=== PATIENT | male | born 1980 | race Caucasian/White ===

== ENCOUNTER 2020-03-29 06:08 | Outpatient (REF) | payer OTHER, SELFPAY | END 2020-03-29 06:09 | disposition home or self-care (01) | LOC: HO.LAB 06:08 | PROVIDERS: Visit Provider Internal Medicine | DX: Z20.828 Contact with and (suspected) exposure to other viral communicable diseases (principal) | CPT/HCPCS: C9803; U0003 ==

== ENCOUNTER 2020-05-30 11:57 | Outpatient (REF) | payer OTHER, SELFPAY ==
--- NOTE | 2020-05-30 12:18 | XR_ITS ---
EXAMINATION: XR CHEST CLINICAL INFORMATION: Cough. COMPARISON: Most recent chest radiograph dated 07/06/2015. TECHNIQUE: 2 views of the chest were obtained. FINDINGS: The lungs are clear. The cardiomediastinal silhouette is normal in size. There is no pleural effusion or pneumothorax. No acute osseous abnormality. XR/XR chest 2V IMPRESSION: No acute cardiopulmonary findings.
[2020-05-30 12:54] LABS: MANUAL DIFF FLAG NO
[2020-05-30 13:04] LABS: Basophils Percent Auto 0.4 % (0-2); Eosinophils Absolute Auto 0.1 X10*3/uL (0.0-0.4); Eosinophils Percent Auto 1.4 % (0-4); Hematocrit 43.9 % (42-52); Hemoglobin 14.9 g/dl (14.0-18.0); Imm Gran Abs Auto 0.02 X10*3/uL (0.00-0.03); Imm Gran Pct Auto 0.4 % (0.0-0.4); Lymphocytes Absolute Auto 1.7 X10*3/uL (1.2-4.9); Lymphocytes Percent Auto 34.5 % (20-40); Mean Corpuscular HGB Conc 33.9 g/dl (31.0-36.0); Mean Corpuscular Hemoglobin 31.7 pg (27.0-33.0); Mean Corpuscular Volume 93.4 fL (80-98); Mean Platelet Volume 9.5 fL (9.4-12.4); Monocytes Absolute Auto 0.4 X10*3/uL (0.1-1.2); Monocytes Percent Auto 8.8 % (2-11); Neutrophils Absolute Auto 2.7 X10*3/uL (2.0-8.3); Neutrophils Percent Auto 54.5 % (45-73); Platelet Count 243 X10*3/uL (160-400); Red Cell Distribution Width 11.6 % (11.0-16.0); White Blood Count 4.9 X10*3/uL (4.8-10.8)
[2020-05-30 13:17] LABS: Glucose Urine UA NEG (NEG); Leukocyte Esterase Urine NEG (NEG); Nitrite Urine NEG (NEG); PH 6.5 (5.0-8.0); Urine Blood NEG (NEG); Urine Ketones NEG (NEG); Urine Protein NEG (NEG-TRACE)
[2020-05-30 13:21] LABS: Alanine Aminotransferase 16 U/L (0-40); Albumin Level 4.6 g/dL (3.5-5.0); Alkaline Phosphatase 62 U/L (39-117); Anion Gap 11 (12-20); Aspartate Amino Transferase 15 U/L (5-37); Bilirubin Total 0.4 mg/dL (0.0-1.0); Blood Urea Nitrogen 18 mg/dL (9-16); Calcium 9.6 mg/dL (8.4-10.2); Carbon Dioxide 30 mmol/L (22-29); Chloride 106 mmol/L (96-108); Estimated Glomerular Filt Rate > 60; Glucose Random 122 mg/dL (60-115); Potassium 4.9 mmol/l (3.3-5.1); Sodium 142 mmol/L (135-145)
[2020-05-30 13:22] LABS: Appearance Urine CLEAR; Color Urine YELLOW
== END 2020-05-30 11:58 | disposition home or self-care (01) ==
LOC: HO.LAB 11:57
PROVIDERS: PCP Internal Medicine; Visit Provider Internal Medicine
DX: R05 Cough (principal)
CPT/HCPCS: 36415; 71046; 80053; 81003; 85025

== ENCOUNTER 2020-08-30 09:31 | Outpatient (REF) | payer OTHER, SELFPAY ==
[2020-08-30 11:08] LABS: Estimated Average Glucose 97 mg/dL
[2020-08-30 11:25] LABS: Alanine Aminotransferase 17 U/L (0-40); Albumin Level 4.5 g/dL (3.5-5.0); Alkaline Phosphatase 67 U/L (39-117); Anion Gap 10 (12-20); Aspartate Amino Transferase 20 U/L (5-37); Bilirubin Total 0.8 mg/dL (0.0-1.0); Blood Urea Nitrogen 19 mg/dL (9-16); Calcium 9.6 mg/dL (8.4-10.2); Carbon Dioxide 27 mmol/L (22-29); Chloride 106 mmol/L (96-108); Cholesterol 204 mg/dL; Estimated Glomerular Filt Rate > 60; Glucose Random 100 mg/dL (60-115); HDL Cholesterol 47 mg/dL; LDL Cholesterol Calculated 132 mg/dl; Potassium 4.8 mmol/L (3.3-5.1); Sodium 138 mmol/L (135-145); Total Protein 6.9 g/dL (6.5-8.0); Triglycerides 126 mg/dL
[2020-08-31 07:53] LABS: SARS COV2 IgG Negative (Negative)
== END 2020-08-30 09:32 | disposition home or self-care (01) ==
LOC: HO.LAB 09:31
PROVIDERS: PCP Internal Medicine; Visit Provider Internal Medicine
DX: E78.00 Pure hypercholesterolemia, unspecified (principal); R73.09 Other abnormal glucose; R05 Cough
CPT/HCPCS: 36415; 80053; 80061; 83036; 86769

== ENCOUNTER 2025-01-25 13:49 | Outpatient (REF) | payer OTHER, SELFPAY ==
--- OUTSIDE RECORDS SUMMARY | 2020-12-19 19:43 | XMS_ITS | Encounter Summary ---
Author Organization [facility] Address [address] [place] [address] Phone Care Team Providers Care Executive Vice President Business Development Name Role Phone Unknown, Unknown Primary Care Provider Venessa hess Encounter Details Date Type Department Care Team (Late st Contact Info) Description 12/19/2020 7:43 PM EDT Hospital Encounter [facility] [address] [place] [phone] Priscilla Romero PA [address] [place] [phone] [email or web address] Social History Tobacco Use Types Packs/Day Years Used Date Smoking Tobacco: Former Smokeless Tobacco: Former Quit: 2010 Comments:Stopped 15 years ag o. Alcohol Use Standard Drinks/Week Comments Yes 0 (1 standard drink = 0.6 oz pur e alcohol) 1-2 a week. Education Answer Date Recorded Are you interested in more education? Not on karen e 09/26/2022 Are you concerned about learning? Not on file 09/26/2022 No 09/26/2022 No 09/26/2022 Digital Access Answer Date Recorded No 10/13/2022 No 10/13/2022 Reliable internet access at home? Not on file 10/13/2022 Device with a working camera? Not on file Sex and Gender Information Value Date Recorded Sex Assigned at Male 02/20/2021 9:31 AM EDT Legal Sex Male 6:55 PM EST Gender Identity Male 02/20/2021 9:31 AM EDT Sexual Orientation Straight 02/20/2021 9: 31 AM EDT documented as of this encounter Functional Status * Calculated C-SSRS Risk Score (Lifetime/Recent) Answer Date of Assessment Author No Risk Indicated 02/20/2021 9:31 AM EDT Ruth Kaye, RN * Nolan Suicide Severity Rating Scale (Screener/Recent Self-Report) Question Answer Date of Assessment Author 1. Wish to be (Past 1 Month) No 021 9:31 AM EDT Ruth Fox, RN 2. Non-Specific Active Suici adilson Thoughts (Past 1 Month) No 02/20/2021 9:31 AM EDT Ruth Fox, HASMUKH 6. Suicidal Behavior (Lifetime) No 9:31 AM EDT Ruth Fox, HASMUKH documented as of this encounter Plan of Treatment Not on file documented as of this encounter Procedures Procedure Name Priority Date/Time Associated Diagnosis Comments XR FOOT 3 OR MORE VIEWS (LEFT) Urgent/patient waiting 12/19/2020 7:52 PM EDT Foot sprain, left, initial encounter documented in this encounter Results * XR FOOT 3 OR MORE VIEWS (LEFT) (12/19/2020 7:52 PM EDT) Anatomical Region Laterality Modality Foot Left Computed Radiogr aphy 12/19/2020 7:58 PM EDT Impressions 12/19/2020 8:01 PM EDT No fracture or dislocation. ATTESTATION: I, Edilma Cuevas as teaching physician, have reviewed the images for this case and if necessary edited the report originally created by Radha Garcia. Narrative 12/19/2020 8:01 PM EDT XR FOOT 3 OR MORE VIEWS (LEFT) COMPARISON: None FINDINGS: No fracture. Normal alignment. Normal joint spaces. Calcaneal enthesophyte. No soft tissue swelling. Procedure Note Edilma Cuevas MD - 12/19/2020 XR FOOT 3 OR MORE VIEWS (LEFT) COMPARISON: None FINDINGS: No fracture. Normal alignment. Normal joint spaces. Calcanealenthesophyte. No soft tissue swelling. IMPRESSION: No fracture or dislocation. ATTESTATION: I, Edilma Cuevas as teaching physician, have reviewed theimages for this case and if necessary edited the report originally createdby Radha Garcia. Priscilla FRANKEL IMG XR LOWER EXTREMITY Final Result documented in this encounter Visit Diagnoses Not on filedocumented in this encounter Additional Health Concerns Infection Onset Date Last Indicated Resolved Time CoV-Risk 05/06/2023 05/06/2023 05/17/2023 1:23 AM EST documented as of this encounter Care Teams Executive Vice President Business Development Relationship Specialty Start Date End Date Unknown, Unknown, PCP - General 05/03/16 02/19/21 documented as of this encounter Additional Source Comments The information contained in this document represents components of the legal health record. It is not the complete legal health record.[facility]
--- OUTSIDE RECORDS SUMMARY | 2025-01-25 16:32 | XMS_ITS | Encounter Summary ---
Author Organization [facility] Address [address] [place] [address] Phone Care Team Providers Care Ordained Minister Name Role Phone Kenneth Gale Primary Care Provider [phone] ShahlaKenneth Unavailable Encounter Details Date Type Department Care Team (Latest Contact Info) Description 04/14/2024 Transcribe Orders Virtual Department [address] [place] [address] Aissatou Whaley PA [address] [place] [address] [place] [address] Left shoulder pain, unspecified chronicity (Primary Dx) Social History Tobacco Use Types Packs/Day Years [...] AM EDT documented as of this encounter Plan of Treatment Scheduled Orders Name Type Priority Associated Diagnoses Orde r Schedule XR Shoulder (Left) Imaging Routine Left shoulder pain, unspecified chronicity Expected: 04/14/2024, Expires: 04/14/2025 documented as of this encounter Visit Diagnoses Diagnosis Left shoulder pain, unspecified chronicity- Primary documented in this encounter Care Teams Ordained Minister Relationship Specialty Start Date End Date Kenneth Gale DO [email or web address] PCP - General Internal Medicine 02/20/21 Kenneth Gale DO [address] [place] [address] [email or web address] Insurance Assigned Provider 01/22/25 documented as of this encounter Additional Source Comments The information contained in this document represents components of the legal health record. It is not the complete legal health record.[facility]
--- OUTSIDE RECORDS SUMMARY | 2025-01-25 16:32 | XMS_ITS | Clinical Summary ---
Author Organization [facility] Address [address] [place] [address] Phone Care Team Providers Care Process Coach Name Role Phone DaisyKenneth huang Primary Care Provider [phone] Kenneth Gale Vishal Unavailable Allergies Active Allergy Reactions Criticality Noted Date Comments Minocycline Hives,Throat Tightness Medium 07/15/2011 Medications diclofenac sodium (VOLTAREN) 75 MG EC tablet 04/28/2023 Active escitalopram oxalate (LEXAPRO) 20 MG tablet 05/06/2023 Active LORazepam (ATIVAN) 0.5 MG tablet Take 1 tablet by mouth every morning. 01/27/2023 Active tiZANidine (ZANAFLEX) 4 MG tablet TAKE 1 TABLET BY MOUTH EVERY 6 HOURS WITH MEALS FOR 7 DAYS 03/27/2023 Active Active Problems No known active problems Immunizations Immunization Administration Dates Next Due COVID-19 (Pre-03/10) Pfizer Vaccine, mRNA, PF ,09/06/2020 Influenza Quadrivalent MDCK Preservative Free IM 06/07/2019,03/05/2018 Influenza Quadrivalent w/ Preservative IM 2015 Tdap 06/04/2018 Social History Tobacco Use Types Packs/Day Years [...] Orientation Straight 02/20/2021 9: 31 AM EDT Last Filed Vital Signs Vital Sign Reading Time Taken Comments Blood Pressure 167/100 05/06/2023 2:58 PM EST Pulse 88 05/06/2023 2:58 PM EST Temperature 36.7 C (98 F) 05/06/2023 2:58 PM EST Respiratory Rate 18 05/06/2023 2:58 PM EST Oxygen Saturation 97% 05/06/2023 2:58 PM EST Inhaled Oxygen Concentration - - Weight 115.7 kg (255 lb) 02/20/2021 9:33 AM EDT Height 177.8 cm (5' 10 ) 02/20/2021 9:33 AM EDT Body Mass Index 36.59 02/20/2021 9:33 AM EDT Plan of Treatment Health Maintenance Due Date Last Done Comments DEPRESSION SCREENING 1991 SMOKING Hx and SMOKELESS TOBACCO SCREENING 1992 HEPATITIS C SCREENING 1997 HIV ONE-TIME SCREENING (18-6 5 YEARS) 1997 LIPID PANEL 07/15/2016 07/15/2011, 07/15/2011 COVID-19 VACCINE (3 - 2023-2 5 season) 2024 09/27/2020, 09/06/2020 COLOGUARD 2024 COLONOSCOPY 2024 COLORECTAL CANCER SCREENING 2024 FIT TEST 2024 FOBT 2024 SIGMOIDOSCOPY 2024 VIRTUAL COLONOSCOPY 2024 INFLUENZA VACCINE (#1) 2024 0, 03/05/2018, 03/28/2016 Adult Td,Tdap Booster 06/04/2028 06/04/2018 HEPATITIS A VACCINES Aged Out No long er eligible based on patient's age to complete this topic HIB VACCINES Aged Out No longer eligi ble based on patient's age to complete this topic MENINGOCOCCAL VACCINES (ACWY) Aged Out No longer eligible based on patient's age to complete this topic MENINGOCOCCAL VACCINES (B) Aged Out N o longer eligible based on patient's age to complete this topic PNEUMOCOCCAL VACCINES (0-49 years) Aged Out No longer eligible b ased on patient's age to complete this topic Medical Devices Not on file Procedures Procedure Name Priority Date/Time Associated Diagnosis Comments HISTORICAL LAB Routine 07/15/2011 12:14 PM EST from Last 3 Months or Most Recently Relevant to Health Maintenance Results * Historical Lab (07/15/2011 12:14 PM EST) High Density Lipoprotein 42 35 - 100 mg/dl [facility] Cholesterol 193 mg/dl [facility] Comment:DESIRABLE: <200 Triglycerides 143 40 - 150 mg/dl [facility] Low Density Lipoprotein 122 mg/dl [facility] Comment:DESIRABLE: <130 Cardiac Risk Ratio 4.6 [facility] Comment:NORMAL RISK RATIO: 5 .0 OR LESS Plasma Glucose 79 70 - 110 mg/dl [facility] 07/15/2011 12:1 4 PM EST 07/15/2011 12:14 PM EST Comment:BLOOD us Wolfgang Zimmerman MD LAB BLOOD ORDERABLES Final Res ult [facility] [address] [place] [address] from Last 3 Months or Most Recently Relevant to Health Maintenance Insurance [facility] [facility] POS EPO [facility] POS EPO [facility] POS EPO [facility] [employer] EPO Care Teams Process Coach Relationship Specialty Start Date End Date Kenneth Gale DO PCP - General Internal Medicine 02/20/21 Kenneth Gale DO [address] [place] [phone] Insurance Assigned Provider 01/22/25 Additional Source Comments The information contained in this document represents components of the legal health record. It is not the complete legal health record.[facility]
[2025-01-25 18:25] LABS: MANUAL DIFF FLAG NO
[2025-01-25 18:36] LABS: Hematocrit 44.3 % (42.0-52.0); Hemoglobin 15.4 g/dl (14.0-18.0); Imm Gran Abs Auto 0.02 X10*3/uL (0.00-0.03); Imm Gran Pct Auto 0.4 % (0.0-0.4); Lymphocytes Absolute Auto 1.6 X10*3/uL (1.2-4.9); Mean Corpuscular HGB Conc 34.8 g/dl (31.0-36.0); Mean Corpuscular Hemoglobin 31.4 pg (27.0-33.0); Mean Corpuscular Volume 90.2 fL (80.0-98.0); NRBC Abs Auto 0.000 X10*3/uL (0.0-0.012); NRBC Pct Auto 0.0 /100WBC (0.0-0.2); Platelet Count 296 X10*3/uL (160-400); Red Blood Count 4.91 X10*6/uL (4.60-5.80); White Blood Count 5.5 X10*3/uL (4.8-10.8)
[2025-01-25 19:02] LABS: Albumin Level 4.5 g/dL (3.5-5.0); Alkaline Phosphatase 93 U/L (39-117); Anion Gap 13 (12-20); Aspartate Amino Transferase 32 U/L (5-37); Blood Urea Nitrogen 16 mg/dL (9-16); Calcium 9.1 mg/dL (8.4-10.2); Carbon Dioxide 25 mmol/L (22-29); Chloride 108 mmol/L (96-108); Estimated Glomerular Filt Rate > 60; Potassium 4.2 mmol/L (3.3-5.1); Sodium 142 mmol/L (135-145); Total Protein 7.0 g/dL (6.5-8.0)
[2025-01-25 19:08] LABS: Prostate Specific Antigen 0.85 ng/mL (<0.05-4.0)
[2025-01-25 19:13] LABS: Alanine Aminotransferase 32 U/L (0-40)
[2025-01-26 05:19] LABS: Hemoglobin A1C 135.7275 umol/L; Total Hemoglobin (HGBA1C) 4000.8791 umol/L
== END 2025-01-25 13:50 | disposition home or self-care (01) ==
LOC: HO.MANLDS 13:49
PROVIDERS: Visit Provider Physician Assistant
DX: Z00.00 Encounter for general adult medical examination without abnormal findings (principal); Z12.5 Encounter for screening for malignant neoplasm of prostate; Z13.1 Encounter for screening for diabetes mellitus
CPT/HCPCS: 36415; 80053; 83036; 84153; 85025